=== PATIENT | female | born 1965 | race American Indian/Alaskan Native ===

== ENCOUNTER → 2024-09-29 | Outpatient (CLI) | payer BC, MEDICAID, SELFPAY ==
--- NOTE | 2024-09-29 10:15 | XR_ITS ---
Examination: Abdomen sonogram, complete Date and time of exam: September 29, 2024 1026 hours INDICATIONS: Diagnosis morbid obesity, preop gastric surgery. Technique: Multiple real-time grayscale transabdominal sonographic images of the abdomen have been obtained. Findings: Absent gallbladder Common bile duct 0.7 cm no stones Pancreatic head 2.6 cm Aorta not enlarged Liver 19.0 cm fatty infiltration no focal liver lesions Normal hepatopedal portal venous flow Patent IVC Right kidney 9.2 x 4.4 x 5.3 cm cortex 1.5 cm Left kidney 10.9 x 4.9 x 5.7 cm cortex 1.9 cm Mild bilateral renal parenchymal scar formation Spleen 8.0 cm IMPRESSION: Absent gallbladder No common bile duct stones Moderate hepatomegaly fatty liver
== END | disposition home or self-care (01) ==
PROVIDERS: PCP Family Medicine
DX: K76.0 Fatty (change of) liver, not elsewhere classified (principal)
CPT/HCPCS: 76700

== ENCOUNTER 2024-11-21 15:51 | Emergency (ER) | payer BC, MEDICAID, SELFPAY ==
[2024-11-21 15:52] VITALS: BMI 40.8
[2024-11-21 16:01] VITALS: BP 137/83; PULSE 102; RESP 18; TEMP 36.9; O2SAT 99
--- NOTE | 2024-11-21 16:08 | XR_ITS ---
Examination: Foot, left, 3 views Technique: AP, oblique, lateral views foot, 3 views Date and time of exam: November 21, 2024 1617 hrs. 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
--- NOTE | 2024-11-21 16:08 | PD.EDRME ---
Rapid Medical Screening Exam RME Arrival date/time: 11/21/24 15:51 59 yo f present to ED for c/o of left foot pain/swelling I have greeted and performed a focused initial assessment of this patient. A comprehensive ED assessment and evaluation of the patient, analysis of all test results, and completion of the medical decision making process will be conducted by additional ED providers. Chief Complaint: Extremity Injury, Lower Time Seen by Provider: 11/21/24 16:04 Vital signs: Vital Signs Temperature 98.5 F 11/21/24 16:01 Pulse Rate 102 H 11/21/24 16:01 Respiratory Rate 18 11/21/24 16:01 Blood Pressure 137/83 H 11/21/24 16:01 Pulse Oximetry (%) 99 11/21/24 16:01 Oxygen Delivery Method Room Air 11/21/24 16:01
[2024-11-21 18:12] VITALS: BP 141/87; PULSE 98; RESP 20; TEMP 36.9; O2SAT 96
--- NOTE | 2024-11-21 18:51 | EDNOTE_ITS ---
Lower Extremity Injury RME/HPI General Chief Complaint: Extremity Injury, Lower Stated Complaint: L) FOOT SWOLLEN & VERY PAINFUL STARTING 11/19 AM Time Seen by Provider: 11/21/24 16:04 Arrival date/time: 11/21/24 15:51 This is a 59-year-old female that comes in with complaints of left foot pain that started 2 days ago. Patient does not remember stepping on it wrong or any trauma. Patient has had history of bone spurs. Patient denies any history of gout in the past. RME / HPI RME / HPI Narrative: 11/21/24 15:51 59 yo f present to ED for c/o of left foot pain/swelling I have greeted and performed a focused initial assessment of this patient. A comprehensive ED assessment and evaluation of the patient, analysis of all test results, and completion of the medical decision making process will be conducted by additional ED providers. Related Data Previous Rx's ?Medication ?Instructions ?Recorded hydrocodone 5 mg-acetaminophen 325 1 tab PO Q8H PRN pa in #10 tabs 11/21/24 mg tablet Allergies Allergy/AdvReac Type Severity Reaction Status Date / Time ibuprofen Allergy Severe Anaphylaxis Verified 11/21/24 15:56 FLU VACCINE Allergy Severe CELLULITIS Uncoded 11/21/24 15:56 Review of Systems Review of Systems Systems Reviewed: All systems reviewed, normal except as documented Past Medical History Past Medical History Comments PMH COMMENT: see hpi ED Exam General General appearance: Present alert and in no apparent distress Head Head exam: Present atraumatic Eye Eye exam: Present normal appearance, PERRL and EOMI ENT ENT exam: Present normal exam, normal oropharynx and mucous membranes moist Neck Neck exam: Present normal inspection, full ROM and trachea midline Chest Chest inspection: Present normal inspection and symmetric chest wall rise Respiratory Respiratory exam: Present normal lung sounds bilaterally Cardiovascular Cardiovascular exam: Present regular rate and normal rhythm Abdominal Exam Abdominal exam: Present soft Extremities Exam Extremities exam: Present full ROM and other (mild swelling left foot) Back Exam Back exam: Present normal inspection and full ROM Neurological Exam Neurological exam: Present alert, oriented X3 and CN II-XII intact Psychiatric Psychiatric exam: Present normal affect and normal mood Skin Skin exam: Present warm, dry, intact and normal color Course Quality Measures none Orders Category Date Time Status XR foot comp LT min 3V Stat Exams 11/21/24 16:08 Completed HYDROcodone*/APAP 5/325 [Hallam 5/325] Med 11/21/24 19:53 Discontinued 1 tab PO X1 ONE Ondansetron Odt [Zofran Odt] Med 11/21/24 19:53 Discontinued 4 mg PO X1 ONE Vital Signs Vital signs: Vital Signs Temperature 98.5 F 11/21/24 16:01 Pulse Rate 102 H 11/21/24 16:01 Respiratory Rate 18 11/21/24 16:01 Blood Pressure 137/83 H 11/21/24 16:01 Pulse Oximetry (%) 99 11/21/24 16:01 Oxygen Delivery Method Room Air 11/21/24 16:01 Extremity Injury, Lower MDM Narrative MDM Narrative:: foot x rays: Findings: 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 Patient states she has a history of bone spurs and this is what her bone spur on the other side felt like. Patient told that she has a calcaneal spur on the left foot where she is having pain. For now we will treat for acute pain. Patient does not have history of gout but her sister does. Patient has never been diagnosed with this. Patient states she will follow-up with her primary provider in 1 to 2 days. Patient given a dose of Hallam today and will send patient was a few home. Patient not able to take ibuprofen at home. Patient comfortable plan of care. I explained the importance of following up with her primary provider further testing if not improved. Patient data External records reviewed:: [facility] previous records Clinical information provided by:: patient Social determinants that could affect healthcare access:: none Patient has the following chronic illnesses:: none How is presenting disease/condition affected by chronic disease/condition?: no chronic disease Evaluation data The following diagnostics were reviewed and interpreted by me:: radiology exam(s) Lab and/or radiology exams considered but not ordered:: none Interpretation Summary: see note Medications / Prescriptions Medications or Prescriptions considered but not ordered:: none Medication administrations:: Medication Administration History Discontinued Medications Hydrocodone Bitart/Acetaminophen (Hydrocodone/Apap 5/325 Tablet) 1 tab PO X1 ONE Stop: 11/21/24 19:54 Last Admin: 11/21/24 20:11 Dose: 1 tab Documented By: DB Ondansetron HCl (Ondansetron Odt 4 Mg Tabrap) 4 mg PO X1 ONE; Protocol Stop: 11/21/24 19:54 Last Admin: 11/21/24 20:12 Dose: 4 mg Documented By: FILIPE see mar Consultations Consultation(s) initiated? (list below): No Diagnosis Most likely diagnosis given after review of the tests above:: foot pain Admission Indicated Admission indicated?: not indicated Admission Request Was there a request for admission?: No Disposition Plan Disposition Plan: Discharge Discharge Attestation Discharge Attestation: The patient and all family members were given an opportunity to ask questions and understood the discharge instructions. Discharge instructions specifically effects, indications for sooner follow up or return to the emergency department, and the expected course of current diagnosis. Patient condition: Stable Discharge Plan Plan Patient Disposition: HOME (Self Care) Patient condition on transfer: Stable Prescriptions/Referrals Prescriptions/Med Rec: New hydrocodone-acetaminophen 5-325 mg tablet 1 tab PO Q8H MDD 4 PRN (Reason: pain) Qty: 10 0RF Referrals: No Primary/Family,Physician [Primary Care Provider] - In 1 week Problem List Clinical Impression: Calcaneal spur, Foot pain Patient/Caregiver Discharge Instructions Discharge Activity: activity as tolerated Education Materials: ED Heel Spur, ED RICE Additional Instructions: Follow up with primary provider in 1-2 days. Come back to ED if symptoms change or worsen. Please make sure to get follow-up with primary provider. Print Language: Icelandic Stand Alone Forms: Elke Award Info., Patient Portal Info Letter NICOLLE/DARY Supervising Physician NICOLLE/DARY Supervising Physician: annalisa
[2024-11-21] MEDS: HYDROcodone/APAP 5/325 TABLET 1 TAB PO (20:11)
[2024-11-21] MEDS: ONDANSETRON ODT 4 MG TABRAP PO (20:12)
== END 2024-11-21 20:15 | disposition home or self-care (01) ==
PROVIDERS: Emergency Provider Emergency Medicine
DX: M77.32 Calcaneal spur, left foot (principal)
CPT/HCPCS: 73630; 99283; Q0162; A9270

== ENCOUNTER 2025-05-20 12:09 | Emergency (ER) | payer BC, MEDICAID, SELFPAY ==
[2025-05-20 12:11] VITALS: BMI 35.3
[2025-05-20 12:26] VITALS: BP 148/79; PULSE 78; RESP 18; TEMP 36.9; O2SAT 99
--- NOTE | 2025-05-20 12:43 | EDNOTE_ITS ---
ED Skin Abcess FB-RME/HPI General Chief complaint: Skin/Abscess/Foreign Body Stated complaint: RIGHT FOOT RED/SWELLING SINCE YESTERDAY Time Seen by Provider: 05/20/25 12:16 Source: patient Arrival date/time: 05/20/25 12:09 59-year-old female with no known medical history presents to the emergency room with a chief complaint of swelling and tenderness to her right foot since yesterday Mode of arrival: ambulatory Limitations: no limitations Related Data Previous Rx's ?Medication ?Instructions ?Recorded hydrocodone 5 mg-acetaminophen 325 1 tab PO Q8H PRN pa in #10 tabs 11/21/ mg tablet sulfamethoxazole 800 1 tab PO BID #14 tabs mg-trimethoprim 160 mg tablet (Bactrim DS) Allergies Allergy/AdvReac Type Severity Reaction Status Date / Time ibuprofen Allergy Severe Anaphylaxis Verified 05/20/25 12:10 influenza virus vaccine, Allergy Severe Anaphylaxis Verified 05/20/25 12:10 specific Review of Systems Review of Systems Systems Reviewed: All systems reviewed, normal except as documented Constitutional Constitutional: Reports system reviewed and no additional complaints, except as documented, Denies fatigue, Denies fever(s), Denies headache(s) and Denies weakness Eyes Eyes: Reports system reviewed and no additional complaints, except as documented, Denies blurry vision and Denies change in vision ENT Ears, Nose, Mouth, and Throat: Reports system reviewed and no additional complaints, except as documented, Denies otalgia, Denies headache(s), Denies nasal congestion, Denies throat swelling and Denies vertigo Cardiovascular Cardiovascular: Reports system reviewed and no additional complaints, except as documented, Denies chest pain, Denies dyspnea and Denies dyspnea on exertion Respiratory Respiratory: Reports system reviewed and no additional complaints, except as documented, Denies chest congestion, Denies cough, Denies dyspnea, Denies dyspnea on exertion and Denies wheezing Gastrointestinal Gastrointestinal: Reports system reviewed and no additional complaints, except as documented, Denies abdominal pain, Denies cramping, Denies nausea and Denies vomiting Genitourinary Genitourinary: Reports system reviewed and no additional complaints, except as documented Musculoskeletal Musculoskeletal: Reports system reviewed and no additional complaints, except as documented and Denies back pain Integumentary/Breasts Skin/Breast: Reports system reviewed and no additional complaints, except as documented, Reports erythema and Denies wounds Neurologic Neurologic: Reports system reviewed and no additional complaints, except as documented, Denies confusion, Denies headache(s), Denies lack of coordination, Denies vertigo and Denies weakness Psychiatric Psychiatric: Reports system reviewed and no additional complaints, except as documented, Denies anxiety, Denies confusion, Denies depression, Denies paranoia, Denies suicidal ideation and Denies tactile hallucinations Endocrine Endocrine: Reports system reviewed and no additional complaints, except as documented and Denies fatigue Hematologic/Lymphatic Hematologic/Lymphatic: Reports system reviewed and no additional complaints, except as documented and Denies lymphadenopathy Allergic/Immunologic Allergic/Immunologic: Reports system reviewed and no additional complaints, except as documented, Denies throat swelling, Denies urticaria and Denies wheezing Past Medical History Social History SMOKING STATUS: Never smoker ED Exam General Limitations: Present no limitations General appearance: Present alert and in no apparent distress Head Head exam: Present atraumatic Eye Eye exam: Present normal appearance, PERRL and EOMI ENT ENT exam: Present normal exam, normal oropharynx and mucous membranes moist Neck Neck exam: Present normal inspection, full ROM and trachea midline Chest Chest inspection: Present normal inspection and symmetric chest wall rise Respiratory Respiratory exam: Present normal lung sounds bilaterally Cardiovascular Cardiovascular exam: Present regular rate, normal rhythm and normal heart sounds Abdominal Exam Abdominal exam: Present soft and normal bowel sounds Extremities Exam Extremities exam: Present normal inspection and full ROM Expanded Lower Extremity Exam Hip/Pelvis exam: Present normal inspection Upper leg exam: Present normal inspection Knee exam: Present normal inspection Lower leg exam: Present normal inspection Ankle exam: Present normal inspection Foot/toe exam: Present full ROM, tenderness, swelling and erythema Top foot image: 2 1. Swelling tenderness and erythema to the foot Gait: observed and limited by pain Back Exam Back exam: Present normal inspection and full ROM Neurological Exam Neurological exam: Present alert, oriented X3 and CN II-XII intact Psychiatric Psychiatric exam: Present normal affect and normal mood Skin Skin exam: Present warm, dry, intact and normal color Course Quality Measures none Orders Category Date Time Status Clindamycin Vial [Cleocin vial] Med 05/20/25 12:42 Discontinued 600 mg IM X1 ONE cefTRIAXone [Rocephin] 1,000 mg Med 05/20/25 12:40 Discontinued Lidocaine 1% 20 ml [Xylocaine 1% 20 ML] 2.1 ml IM X1 Vital Signs Vital signs: Vital Signs Temperature 98.5 F 05/20/25 12:26 Pulse Rate 78 05/20/25 12:26 Respiratory Rate 18 05/20/25 12:26 Blood Pressure 148/79 H 05/20/25 12:26 Pulse Oximetry (%) 99 05/20/25 12:26 Oxygen Delivery Method Room Air 05/20/25 12:26 Skin / Abscess / Foreign Body MDM Narrative MDM Narrative:: 59-year-old female with no known medical history presents to the emergency room with a chief complaint of swelling and tenderness to her right foot since yesterday Patient is hemodynamically stable and in no apparent distress. The patient is afebrile nausea cardiac not tachypneic Physical examination shows an area of erythema tenderness and mild swelling to the top of the patient's right foot. Patient denies any trauma or any injury. Patient states this injury occurred yesterday and upon close examination this appears to be an insect bite or mild cellulitis. The patient has full range of motion. There is sensation to the foot and she is able to wiggle all her toes. Antibiotics are sent to the patient's pharmacy Patient was discharged and educated to follow-up with primary care provider in the next 24 to 48 hours and return to the emergency room for any evidence of worsening signs or symptoms Patient data External records reviewed:: [facility] previous records Clinical information provided by:: patient Social determinants that could affect healthcare access:: none Patient has the following chronic illnesses:: No chronic How is presenting disease/condition affected by chronic disease/condition?: no chronic disease Evaluation data The following diagnostics were reviewed and interpreted by me:: lab results and radiology exam(s) Lab and/or radiology exams considered but not ordered:: Labs and radiology exams considered and ordered Interpretation Summary: N/A Medications / Prescriptions Medications or Prescriptions considered but not ordered:: Medication given Medication administrations:: Medication Administration History Discontinued Medications Clindamycin Phosphate (Clindamycin Phos Inj 150 Mg/Ml Vial 6 Ml) 600 mg IM X1 ONE Stop: 05/20/25 12:43 Ceftriaxone Sodium 1,000 mg/ (Lidocaine HCl 2.1 ml) 0 mg IM X1 ONE Stop: 05/20/25 12:41 Medication Consultations Consultation(s) initiated? (list below): No Diagnosis Skin/Abscess Differential Diagnosis: abscess of skin or subcutaneous tissue, cellulitis, insect bites and contact dermatitis Most likely diagnosis given after review of the tests above:: Cellulitis Admission Indicated Admission indicated?: not indicated Admission Request Was there a request for admission?: No Disposition Plan Disposition Plan: Discharge Discharge Attestation Discharge Attestation: The patient and all family members were given an opportunity to ask questions and understood the discharge instructions. Discharge instructions specifically effects, indications for sooner follow up or return to the emergency department, and the expected course of current diagnosis. Patient condition: Stable Discharge Plan Plan Patient Disposition: HOME (Self Care) Discharge Disposition comment: Stable Prescriptions/Referrals Prescriptions/Med Rec: New sulfamethoxazole-trimethoprim [Bactrim DS] 800-160 mg tablet 1 tab PO BID Qty: 14 0RF No Action hydrocodone-acetaminophen 5-325 mg tablet 1 tab PO Q8H MDD 4 PRN (Reason: pain) Qty: 10 0RF Problem List Clinical Impression: Cellulitis Patient/Caregiver Discharge Instructions Education Materials: Discharge Instructions for Cellulitis, ED Cellulitis Additional Instructions: Please follow-up with your primary care provider in the next 24 to 48 hours Antibiotics were sent to your pharmacy please pick them up and take them as indicated For any evidence of worsening signs or symptoms return to the emergency room immediately Print Language: Cymraes Stand Alone Forms: Elke Award Info., Patient Portal Info Letter PA/SERVER MANAGER Supervising Physician PA/DARY Supervising Physician: Dr. Galvin
[2025-05-20] MEDS: CLINDAMYCIN PHOS INJ 150 MG/ML VIAL 6 ML 600 MG IM (13:26)
== END 2025-05-20 13:32 | disposition home or self-care (01) ==
LOC: SERX 13:10
PROVIDERS: Emergency Provider Family Medicine
DX: L03.115 Cellulitis of right lower limb (principal)
CPT/HCPCS: 96372; 99283; J0736

== ENCOUNTER 2025-08-28 09:26 | Emergency (ER) | payer BC, MEDICAID, SELFPAY ==
--- NOTE | 2025-08-28 09:33 | XR_ITS ---
Examination: Wrist, left 3 views Technique: Wrist AP, oblique, lateral 3 views Date and time of exam: August 28, 2025, 0933 hours INDICATIONS: Injury of the wrist 2 days ago, wrist pain. FINDINGS: No acute fracture No dislocation No foreign body IMPRESSION: No acute fracture
[2025-08-28 09:36] VITALS: BP 169/80; PULSE 79; RESP 18; TEMP 36.6; O2SAT 96; BMI 34.1
--- NOTE | 2025-08-28 09:55 | PD.EDHAND ---
Upper Extremity Injury RME/HPI General Chief Complaint: Hand/Wrist Problems Stated Complaint: INJURY TO L) WRIST ON FRIDAY Time Seen by Provider: 08/28/25 09:28 Source: patient Arrival date/time: 08/28/25 09:26 60-year-old female with no known medical history presents to the emergency room with a chief complaint of tenderness and swelling to her left wrist after an injury that occurred while she was carrying groceries Mode of arrival: ambulatory Limitations: no limitations Related Data Previous Rx's ?Medication ?Instructions ?Recorded hydrocodone 5 mg-acetaminophen 325 1 tab PO Q8H PRN pain #10 tabs 11/21/25 mg tablet sulfamethoxazole 800 1 tab PO BID #14 tabs 05/20/25 mg-trimethoprim 160 mg tablet (Bactrim DS) Allergies Allergy/AdvReac Type Severity Reaction Status Date / Time ibuprofen Allergy Severe Anaphylaxis Verified 08/28/25 09:29 influenza virus vaccine, Allergy Severe Anaphylaxis Verified 08/28/25 09:29 specific Review of Systems Review of Systems Systems Reviewed: All systems reviewed, normal except as documented Constitutional Constitutional: Reports system reviewed and no additional complaints, except as documented, Denies fatigue, Denies fever(s), Denies headache(s) and Denies weakness Eyes Eyes: Reports system reviewed and no additional complaints, except as documented, Denies blurry vision and Denies change in vision ENT Ears, Nose, Mouth, and Throat: Reports system reviewed and no additional complaints, except as documented, Denies otalgia, Denies headache(s), Denies nasal congestion, Denies throat swelling and Denies vertigo Cardiovascular Cardiovascular: Reports system reviewed and no additional complaints, except as documented, Denies chest pain, Denies dyspnea and Denies dyspnea on exertion Respiratory Respiratory: Reports system reviewed and no additional complaints, except as documented, Denies chest congestion, Denies cough, Denies dyspnea, Denies dyspnea on exertion and Denies wheezing Gastrointestinal Gastrointestinal: Reports system reviewed and no additional complaints, except as documented, Denies abdominal pain, Denies cramping, Denies nausea and Denies vomiting Genitourinary Genitourinary: Reports system reviewed and no additional complaints, except as documented Musculoskeletal Musculoskeletal: Reports system reviewed and no additional complaints, except as documented, Denies back pain, Reports joint swelling and Reports limited range of motion Integumentary/Breasts Skin/Breast: Reports system reviewed and no additional complaints, except as documented and Denies wounds Neurologic Neurologic: Reports system reviewed and no additional complaints, except as documented, Denies confusion, Denies headache(s), Denies lack of coordination, Denies vertigo and Denies weakness Psychiatric Psychiatric: Reports system reviewed and no additional complaints, except as documented, Denies anxiety, Denies confusion, Denies depression, Denies paranoia, Denies suicidal ideation and Denies tactile hallucinations Endocrine Endocrine: Reports system reviewed and no additional complaints, except as documented and Denies fatigue Hematologic/Lymphatic Hematologic/Lymphatic: Reports system reviewed and no additional complaints, except as documented and Denies lymphadenopathy Allergic/Immunologic Allergic/Immunologic: Reports system reviewed and no additional complaints, except as documented, Denies throat swelling, Denies urticaria and Denies wheezing Past Medical History Social History SMOKING STATUS: Never smoker ED Exam General Limitations: Present no limitations General appearance: Present alert and in no apparent distress Head Head exam: Present atraumatic Eye Eye exam: Present normal appearance, PERRL and EOMI ENT ENT exam: Present normal exam, normal oropharynx and mucous membranes moist Neck Neck exam: Present normal inspection, full ROM and trachea midline Chest Chest inspection: Present normal inspection and symmetric chest wall rise Respiratory Respiratory exam: Present normal lung sounds bilaterally Cardiovascular Cardiovascular exam: Present regular rate, normal rhythm and normal heart sounds Abdominal Exam Abdominal exam: Present soft and normal bowel sounds Extremities Exam Extremities exam: Present normal inspection and full ROM Expanded Upper Extremity Exam Shoulder exam: Present normal inspection Arm exam: Present normal inspection Elbow exam: Present normal inspection Forearm/Wrist exam: Present tenderness and swelling; Absent full ROM Vascular exam: Normal capillary refill Back Exam Back exam: Present normal inspection and full ROM Neurological Exam Neurological exam: Present alert, oriented X3 and CN II-XII intact Psychiatric Psychiatric exam: Present normal affect and normal mood Skin Skin exam: Present warm, dry, intact and normal color Course Quality Measures none Orders Category Date Time Status XR wrist comp LT min 3V Stat Exams 08/28/25 09:33 Completed Vital Signs Vital signs: Vital Signs Temperature 97.8 F 08/28/25 09:36 Pulse Rate 79 08/28/25 09:36 Respiratory Rate 18 08/28/25 09:36 Blood Pressure 169/80 H 08/28/25 09:36 Pulse Oximetry (%) 96 08/28/25 09:36 Oxygen Delivery Method Room Air 08/28/25 09:36 Extremity Injury MDM Narrative MDM Narrative:: 60-year-old female with no known medical history presents to the emergency room with a chief complaint of tenderness and swelling to her left wrist after an injury that occurred while she was carrying groceries Patient is hemodynamically stable and in no apparent distress Physical examination shows tenderness and swelling to the patient's left wrist. The patient has limited range of motion. But the patient has full sensation and has good capillary refill X-rays of the wrist were completed and were negative for any acute fracture or dislocation Patient was discharged and educated to follow-up with primary care provider in the next 24 to 48 hours and return to the emergency room for any evidence of worsening signs or symptoms Patient data External records reviewed:: [facility] previous records Clinical information provided by:: patient Social determinants that could affect healthcare access:: none Patient has the following chronic illnesses:: No chronic illness How is presenting disease/condition affected by chronic disease/condition?: no chronic disease Evaluation data The following diagnostics were reviewed and interpreted by me:: lab results and radiology exam(s) Lab and/or radiology exams considered but not ordered:: Labs and radiology exams considered and ordered Interpretation Summary: X-ray wrist-no acute fracture or dislocation Medications / Prescriptions Medications or Prescriptions considered but not ordered:: No medication given Medication administrations:: No medication given Consultations Consultation(s) initiated? (list below): No Diagnosis Upper Extremity Injury Differential Diagnosis: sprain and strain of wrist and fracture of wrist Most likely diagnosis given after review of the tests above:: Sprain and strain of wrist Admission Indicated Admission indicated?: not indicated Admission Request Was there a request for admission?: No Disposition Plan Disposition Plan: Discharge Discharge Attestation Discharge Attestation: The patient and all family members were given an opportunity to ask questions and understood the discharge instructions. Discharge instructions specifically effects, indications for sooner follow up or return to the emergency department, and the expected course of current diagnosis. Patient condition: Stable Discharge Plan Plan Patient Disposition: HOME (Self Care) Discharge Disposition comment: Stable Prescriptions/Referrals Prescriptions/Med Rec: No Action hydrocodone-acetaminophen 5-325 mg tablet 1 tab PO Q8H MDD 4 PRN (Reason: pain) Qty: 10 0RF sulfamethoxazole-trimethoprim [Bactrim DS] 800-160 mg tablet 1 tab PO BID Qty: 14 0RF Problem List Clinical Impression: Sprain and strain of wrist Patient/Caregiver Discharge Instructions Additional Instructions: Please follow-up with your primary care provider in the next 24 to 48 hours X-rays of your wrist were completed and were negative for any acute findings For any evidence of worsening signs or symptoms return to the emergency room immediately Print Language: Upper Sorbian Stand Alone Forms: Elke Award Info., Work/School Release, Patient Portal Info Letter PA/HEATING AND BLENDING SUPERVISOR Supervising Physician PA/HEATING AND BLENDING SUPERVISOR Supervising Physician: Dr. Nieto
== END 2025-08-28 10:24 | disposition home or self-care (01) ==
LOC: SERX 10:36
PROVIDERS: Emergency Provider Emergency Medicine
DX: S63.502A Unspecified sprain of left wrist, initial encounter (principal); S66.912A Strain of unspecified muscle, fascia and tendon at wrist and hand level, left hand, initial encounter; X58.XXXA Exposure to other specified factors, initial encounter
CPT/HCPCS: 73110; 99282